=== PATIENT | male | born 1980 | race Caucasian/White ===

== ENCOUNTER 2023-12-16 14:24 | Emergency (ER) | payer BC ==
[~2023-12-16] VITALS: Ht 185.4 cm; Wt 99.8 kg
[2023-12-16] MEDS: HYDROCORTISONE 2.5% CREAM 28.4 GM TUBE TP SCH (15:10)
[2023-12-16 15:30] VITALS: BP 128/51; TEMP 97.8; O2SAT 99
== END 2023-12-16 15:31 | disposition home or self-care (01) ==
LOC: ER 14:40
DX: R21 Rash and other nonspecific skin eruption (principal); F32.A Depression, unspecified